=== PATIENT | male | born 1990 | race Caucasian/White ===

== ENCOUNTER 2019-03-31 11:53 | Inpatient (IN) | payer OTHER ==
[2019-03-31 13:28] VITALS: BMI 26.2
--- NOTE | 2019-03-31 13:56 | HP ---
COWS - Scale Resting Pulse: 0= [place] 80 or Below Sweatin=Flushed/Facial Moisture Restless Observation: 0= Sits Still Pupil Size: 1= Pupils >than Normal Bone or Joint Aches: 1= Mild Discomfort Runny Nose/ Eye Tearin= Nasal Congestion GI Upset > 30mins: 1= Stomach Cramp Tremor Observation: 2= Slight Tremor Visible Yawning Observation: 1= 1-2x During Session Anxiety or Irritability: 0= None Goose Flesh Skin: 0=Smooth Skin COWS Score: 9 CIWA Score - Admission Criteria OASAS Guidelines: Admission for Medically Managed Detox: Requires at least one of the followin. CIWA greater than 12 2. Seizures within the past 24 hours 3. Delirium tremens within the past 24 hours 4. Hallucinations within the past 24 hours 5. Acute intervention needed for co occurring medical disorder 6. Acute intervention needed for co occurring psychiatric disorder 7. Severe withdrawal that cannot be handled at a lower level of care (continued vomiting, continued diarrhea, abnormal vital signs) requiring intravenous medication and/or fluids 8. Admitting History and Physical - Admission Chief Complaint: wants opiate detox History of Present Illness: The patient is a 28 yo m w/ no PMH who comes into [facility] for assistance with detox from opiates. The patient endorses injecting 7 bags of heroin daily since he was 18 years old. He last used 2 bags at 6pm yesterday evening. The patient states that he overdoes a total of 8 times in the ppast, with the most recent one being 2 years ago 2/2 to the herion being laced with fentanyl. The patient states that he has a narcan kit at home and his mother knows how to use it. The patient endorses injecting and sniffing $20-30 of cocaine approx 2 times per week for the last 4-5 years. His last use was last sunday. The patient also endorses smoking ~ $20-30 of crack 2 times per week for the past 2 years. His last use was last . The patient endorses smoking 1 blunt of marijuana daily Patient endorses 1 PPD tobacco. He states he drank one beer this morning, but drinks only once every 2 weeks. The patient is interested in completing rehab as well. History Source: Patient Limitations to Obtaining History: No Limitations - Past Medical History Psych: Yes: Addictions - Past Surgical History Past Surgical History: Yes: None - Smoking History Have you smoked in the past 12 months: Yes Aproximately how many cigarettes per day: 30 Admission ROS S - HPI Allergies/Adverse Reactions: Allergies Allergy/AdvReac Type Severity Reaction Status Date / Time No Known Allergies Allergy Verified 03/31/19 13:19 - Ebola screening Have you traveled outside of the country in the last 21 days: No Have you had contact with anyone from an Ebola affected area: No Do you have a fever: No - Review of Systems Respiratory: reports: No Symptoms reported Cardiac: reports: No Symptoms Reported GI: reports: Diarrhea, Abdominal cramping : reports: No Symptoms Reported Musculoskeletal: reports: Back Pain, Joint Pain Neuro: reports: Tremors Psychiatric: reports: Judgement Intact, Mood/Affect Appropiate, Orientated x3 Patient History - Smoking Cessation Smoking history: Current every day smoker Have you smoked in the past 12 months: Yes Aproximately how many cigarettes per day: 30 Initiated information on smoking cessation: Yes 'Breaking Loose' booklet given: 03/31/19 - Substances abused Heroin Substance route: Injection Frequency: Daily Amount used: 7-8 bags Age of first use: 18 Date of last use: 03/30/19 Crack Substance route: Smoking Frequency: 1-2 times per week Amount used: $30 Age of first use: 27 Date of last use: 03/28/19 Marijuana/Hashish Substance route: Smoking Frequency: Daily Amount used: 1 blunt Age of first use: 14 Date of last use: 03/28/19 Cocaine Other (specify): and IV Substance route: Inhalation Frequency: 3-6 times per week Amount used: $20-30 Age of first use: 23 Date of last use: 03/29/19 Admission Physical Exam [facility] - Vital Signs Vital Signs: Vital Signs - 24 hr 03/31/19 13:18 Temperature 98.7 F Pulse Rate 73 Respiratory 18 Rate Blood Pressure 127/76 - Physical General Appearance: Yes: Nourished, Mild Distress HEENTM: Yes: EOMI, ALEXSANDRA, Pharynx Normal, Other (pupils mildly dilated) Respiratory: Yes: Chest Non-Tender, Lungs Clear, Normal Breath Sounds, No Respiratory Distress, No Accessory Muscle Use Neck: Yes: Trachea in good position Cardiology: Yes: Regular Rhythm, Regular Rate, S1, S2. 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 intact, Fully Oriented, Alert, Motor Strength 5/5, Normal Mood/Affect Integumentary: Yes: Normal Color, Dry, Warm - Diagnostic (1) Opioid dependence Current Visit: Yes Status: Acute (2) Cocaine abuse Current Visit: Yes Status: Acute (3) Marijuana smoker Current Visit: Yes Status: Acute (4) Tobacco dependence Current Visit: Yes Status: Acute Cleared for Admission [facility] - Detox or Rehab [facility] Level of Care: Medically Managed Detox Regimen/Protocol: Methadone Breathalyzer - Breathalyzer Breathalyzer: 0.006 Urine Drug Screen - Test Device Lot number: [id number] Expiration date: 12/23/20 - Control Is test valid?: Yes - Results Drug screen NEGATIVE: No Urine drug screen results: THC-Marijuana, MOP-Opiates, BUP-Suboxone Inpatient Rehab Admission - Rehab Decision to Admit Inpatient rehab admission?: No
--- NOTE | 2019-03-31 14:14 | PN ---
Teaching Attending Note Name of Resident: Adam Hemphill ATTENDING PHYSICIAN STATEMENT I saw and evaluated the patient. I reviewed the resident's note and discussed the case with the resident. I agree with the resident's findings and plan as documented. SUBJECTIVE: 28 yo with no PMH, here for heroin detox. h/o OD. Has narcan kit. Occ cocaine, alcohol and THC use OBJECTIVE: Vital Signs - 24 hr 03/31/19 13:18 Temperature 98.7 F Pulse Rate 73 Respiratory 18 Rate Blood Pressure 127/76 ASSESSMENT AND PLAN: OUD- to be admitted for detox, discussed MAT with pt
[2019-03-31] MEDS ORDERED: ACETAMINOPHEN 325 MG TABLET (FP) PO PRN ×2 (14:27)
[2019-03-31] MEDS ORDERED: MENTHOL/PHENOL 1 EACH UD MM PRN (14:27)
[2019-03-31] MEDS ORDERED: MAGNESIUM HYDROX 2400MG/30ML ORAL SUSPENSION 30 ML CUP PO PRN (14:27)
[2019-03-31] MEDS ORDERED: IBUPROFEN 400 MG TABLET (FP) PO PRN (14:27)
[2019-03-31] MEDS ORDERED: BISMUTH SUBSALICYLATE 524 MG/30 ML UD PO PRN (14:27)
[2019-03-31] MEDS ORDERED: MAG HYDROX/AL HYDROX/SIMETH 30 ML UNIT-DOSE CUP PO PRN (14:27)
[2019-03-31] MEDS ORDERED: MAGNESIUM CITRATE 300 ML BOTTLE PO PRN (14:27)
[2019-03-31] MEDS ORDERED: cloNIDine HCL 0.1 MG TABLET PO PRN (14:27)
[2019-03-31] MEDS ORDERED: METHADONE HCL 10 MG TABLET (FOR DETOX USE ONLY) PO ONE (16:15)
[2019-03-31] MEDS: NICOTINE 21 MG/24 HOURS TOPICAL PATCH TD SCH (17:02)
[2019-03-31] MEDS: THIAMINE HCL 100 MG TABLET (FP) PO SCH (21:35)
[2019-03-31] MEDS: clonazePAM 0.5 MG TABLET PO PRN (21:35)
[2019-03-31] MEDS: METHOCARBAMOL 500 MG TABLET PO PRN (21:35)
[2019-03-31] MEDS: MELATONIN 5 MG TABLETS PO PRN (21:36)
[2019-04-01] MEDS: METHOCARBAMOL 500 MG TABLET PO PRN ×2 (06:33→22:00)
[2019-04-01] MEDS ORDERED: METHADONE HCL 10 MG TABLET (FOR DETOX USE ONLY) ONE (08:44)
[2019-04-01] MEDS ORDERED: METHADONE HCL 5 MG TABLET (FOR DETOX USE ONLY) ONE (08:44)
[2019-04-01 09:41] LABS: HEMATOCRIT 39.4 % (35.4-49); HEMOGLOBIN 13.3 GM/dL (11.7-16.9); MCH 29.3 pg (25.7-33.7); MCHC 33.7 g/dl (32.0-35.9); MEAN CELL VOLUME 86.8 fl (80-96); PLATELET COUNT 284 K/MM3 (134-434); RBC 4.54 M/mm3 (4.00-5.60); RDW 13.8 % (11.9-15.9); WHITE BLOOD COUNT 5.5 K/mm3 (4.0-10.0)
[2019-04-01] MEDS ORDERED: METHADONE (DETOX) 20 MG, METHADONE (DETOX) 5 MG PO ONE (10:00)
[2019-04-01] MEDS: PRENATAL VITAMINS W/ FOLIC ACID TABLET (FP) PO SCH (10:01)
[2019-04-01] MEDS: NICOTINE 21 MG/24 HOURS TOPICAL PATCH TD SCH (10:02)
[2019-04-01] MEDS: clonazePAM 0.5 MG TABLET PO PRN ×2 (10:05→22:00)
[2019-04-01] MEDS: hydrOXYzine PAMOATE 25 MG CAPSULE (FP) PO PRN (10:05)
[2019-04-01 10:16] LABS: ALBUMIN 3.8 g/dl (3.4-5.0); BILIRUBIN,TOTAL 0.6 mg/dL (0.2-1); BLOOD UREA NITROGEN 15.8 mg/dL (7-18); CALCIUM 9.2 mg/dL (8.5-10.1); TOT PROT 7.2 g/dl (6.4-8.2)
--- NOTE | 2019-04-01 11:22 | PN ---
BHS COWS - Scale Resting Pulse: 0= [place] 80 or Below Sweatin= Chills/Flushing Restless Observation: 0= Sits Still Pupil Size: 1= Pupils >than Normal Bone or Joint Aches: 1= Mild Discomfort Runny Nose/ Eye Tearin= Nasal Congestion GI Upset > 30mins: 1= Stomach Cramp Tremor Observation of Outstretched Hands: 1= Tremor [place], Not Seen Yawning Observation: 1= 1-2x During Session Anxiety or Irritability: 1=Feels Anxious/Irritable Goose Flesh Skin: 0=Smooth Skin COWS Score: 8 BHS Progress Note (SOAP) Subjective: 28 years old male admitted on 03/31/19 for opiate withdrawal sx management treating with methadone detox regimen feeling ok today ate breakfast in day room with peers encourage to consider medication assisted 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 program 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 Objective: 04/01/19 11:21 Vital Signs Temperature 98.8 F 04/01/19 09:16 Pulse Rate 76 04/01/19 09:16 Respiratory Rate 18 04/01/19 09:16 Blood Pressure 121/61 04/01/19 09:16 O2 Sat by Pulse Oximetry (%) Laboratory Last Values WBC 5.5 K/mm3 (4.0-10.0) 04/01/19 08:00 RBC 4.54 M/mm3 (4.00-5.60) 04/01/19 08:00 Hgb 13.3 GM/dL (11.7-16.9) 04/01/19 08:00 Hct 39.4 % (35.4-49) 04/01/19 08:00 MCV 86.8 fl (80-96) 04/01/19 08:00 MCH 29.3 pg (25.7-33.7) 04/01/19 08:00 MCHC 33.7 g/dl (32.0-35.9) 04/01/19 08:00 RDW 13.8 % (11.9-15.9) 04/01/19 08:00 Plt Count 284 K/MM3 (134-434) 04/01/19 08:00 MPV 8.0 fl (7.5-11.1) 04/01/19 08:00 Sodium 137 mmol/L (136-145) 04/01/19 08:00 Potassium 4.0 mmol/L (3.5-5.1) 04/01/19 08:00 Chloride 101 mmol/L (98-107) 04/01/19 08:00 Carbon Dioxide 32 mmol/L (21-32) 04/01/19 08:00 Anion Gap 4 MMOL/L (8-16) L 04/01/19 08:00 BUN 15.8 mg/dL (7-18) 04/01/19 08:00 Creatinine 1.0 mg/dL (0.55-1.3) 04/01/19 08:00 Est GFR (CKD-EPI)AfAm 117.36 04/01/19 08:00 Est GFR (CKD-EPI)NonAf 101.26 04/01/19 08:00 Random Glucose 135 mg/dL (74-106) H 04/01/19 08:00 Calcium 9.2 mg/dL (8.5-10.1) 04/01/19 08:00 Total Bilirubin 0.6 mg/dL (0.2-1) 04/01/19 08:00 AST 12 U/L (15-37) L 04/01/19 08:00 ALT 23 U/L (13-61) 04/01/19 08:00 Alkaline Phosphatase 58 U/L (45-117) 04/01/19 08:00 Total Protein 7.2 g/dl (6.4-8.2) 04/01/19 08:00 Albumin 3.8 g/dl (3.4-5.0) 04/01/19 08:00 lab noted Assessment: 04/01/19 11:22 opiate withdrawal Plan: methadone regimen
[2019-04-01] MEDS: THIAMINE HCL 100 MG TABLET (FP) PO SCH (22:00)
[2019-04-01] MEDS: MELATONIN 5 MG TABLETS PO PRN (22:00)
[2019-04-02] MEDS: clonazePAM 0.5 MG TABLET PO PRN ×2 (09:50→21:50)
[2019-04-02] MEDS: METHOCARBAMOL 500 MG TABLET PO PRN (09:50)
[2019-04-02] MEDS: NICOTINE 21 MG/24 HOURS TOPICAL PATCH TD SCH (09:50)
[2019-04-02] MEDS: PRENATAL VITAMINS W/ FOLIC ACID TABLET (FP) PO SCH (09:51)
[2019-04-02] MEDS ORDERED: METHADONE HCL 10 MG TABLET (FOR DETOX USE ONLY) PO ONE (10:00)
--- NOTE | 2019-04-02 11:05 | PN ---
BHS COWS - Scale Resting Pulse: 0= [place] 80 or Below Sweatin= Chills/Flushing Restless Observation: 0= Sits Still Pupil Size: 1= Pupils >than Normal Bone or Joint Aches: 1= Mild Discomfort Runny Nose/ Eye Tearin= Nasal Congestion GI Upset > 30mins: 1= Stomach Cramp Tremor Observation of Outstretched Hands: 1= Tremor [place], Not Seen Yawning Observation: 0= None Anxiety or Irritability: 1=Feels Anxious/Irritable Goose Flesh Skin: 0=Smooth Skin COWS Score: 7 BHS Progress Note (SOAP) Subjective: 28 years old male admitted on 03/31/19 for opiate withdrawal sx management treating with methadone detox regimen ate breakfast resting in bed encourage the patient to consider medication assisted treatment program and 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 narcan from pharmacy Objective: 04/02/19 11:06 Vital Signs Temperature 97.6 F 04/02/19 09:25 Pulse Rate 60 04/02/19 09:25 Respiratory Rate 18 04/02/19 09:25 Blood Pressure 113/57 L 04/02/19 09:25 O2 Sat by Pulse Oximetry (%) Laboratory Last Values WBC 5.5 K/mm3 (4.0-10.0) 04/01/19 08:00 RBC 4.54 M/mm3 (4.00-5.60) 04/01/19 08:00 Hgb 13.3 GM/dL (11.7-16.9) 04/01/19 08:00 Hct 39.4 % (35.4-49) 04/01/19 08:00 MCV 86.8 fl (80-96) 04/01/19 08:00 MCH 29.3 pg (25.7-33.7) 04/01/19 08:00 MCHC 33.7 g/dl (32.0-35.9) 04/01/19 08:00 RDW 13.8 % (11.9-15.9) 04/01/19 08:00 Plt Count 284 K/MM3 (134-434) 04/01/19 08:00 MPV 8.0 fl (7.5-11.1) 04/01/19 08:00 Sodium 137 mmol/L (136-145) 04/01/19 08:00 Potassium 4.0 mmol/L (3.5-5.1) 04/01/19 08:00 Chloride 101 mmol/L (98-107) 04/01/19 08:00 Carbon Dioxide 32 mmol/L (21-32) 04/01/19 08:00 Anion Gap 4 MMOL/L (8-16) L 04/01/19 08:00 BUN 15.8 mg/dL (7-18) 04/01/19 08:00 Creatinine 1.0 mg/dL (0.55-1.3) 04/01/19 08:00 Est GFR (CKD-EPI)AfAm 117.36 04/01/19 08:00 Est GFR (CKD-EPI)NonAf 101.26 04/01/19 08:00 Random Glucose 135 mg/dL (74-106) H 04/01/19 08:00 Calcium 9.2 mg/dL (8.5-10.1) 04/01/19 08:00 Total Bilirubin 0.6 mg/dL (0.2-1) 04/01/19 08:00 AST 12 U/L (15-37) L 04/01/19 08:00 ALT 23 U/L (13-61) 04/01/19 08:00 Alkaline Phosphatase 58 U/L (45-117) 04/01/19 08:00 Total Protein 7.2 g/dl (6.4-8.2) 04/01/19 08:00 Albumin 3.8 g/dl (3.4-5.0) 04/01/19 08:00 RPR Titer Nonreactive (NONREACTIVE) 04/01/19 08:00 HIV 1&2 Antibody Screen Negative 04/01/19 08:00 HIV P24 Antigen Negative 04/01/19 08:00 lab noted Assessment: 04/02/19 11:06 opiate withdrawal Plan: methadone regimen
[2019-04-02] MEDS: MELATONIN 5 MG TABLETS PO PRN (21:49)
[2019-04-02] MEDS: THIAMINE HCL 100 MG TABLET (FP) PO SCH (21:50)
[2019-04-03] MEDS ORDERED: METHADONE (DETOX) 10 MG, METHADONE (DETOX) 5 MG PO ONE (10:00)
[2019-04-03] MEDS ORDERED: METHADONE HCL 5 MG TABLET (FOR DETOX USE ONLY) ONE (10:03)
[2019-04-03] MEDS ORDERED: METHADONE HCL 10 MG TABLET (FOR DETOX USE ONLY) ONE (10:03)
[2019-04-03] MEDS: clonazePAM 0.5 MG TABLET PO PRN ×2 (10:04→21:56)
[2019-04-03] MEDS: PRENATAL VITAMINS W/ FOLIC ACID TABLET (FP) PO SCH (10:05)
[2019-04-03] MEDS: NICOTINE 21 MG/24 HOURS TOPICAL PATCH TD SCH (10:05)
--- NOTE | 2019-04-03 11:22 | PN ---
BHS COWS - Scale Resting Pulse: 0= [place] 80 or Below Sweatin= No chills or Flushing Restless Observation: 0= Sits Still Pupil Size: 1= Pupils >than Normal Bone or Joint Aches: 1= Mild Discomfort Runny Nose/ Eye Tearin= None GI Upset > 30mins: 0= None Tremor Observation of Outstretched Hands: 1= Tremor [place], Not Seen Yawning Observation: 0= None Anxiety or Irritability: 1=Feels Anxious/Irritable Goose Flesh Skin: 0=Smooth Skin COWS Score: 4 BHS Progress Note (SOAP) Subjective: 28 years old male admitted on 03/31/19 for opiate withdrawal sx management treating with methadone detox regimen doing ok today discuss aftercare with staff patient determines to maintain opioid free lifestyle Objective: 04/03/19 11:21 Vital Signs Temperature 97.0 F L 04/03/19 09:34 Pulse Rate 59 L 04/03/19 09:34 Respiratory Rate 18 04/03/19 09:34 Blood Pressure 133/73 04/03/19 09:34 O2 Sat by Pulse Oximetry (%) Laboratory Last Values WBC 5.5 K/mm3 (4.0-10.0) 04/01/19 08:00 RBC 4.54 M/mm3 (4.00-5.60) 04/01/19 08:00 Hgb 13.3 GM/dL (11.7-16.9) 04/01/19 08:00 Hct 39.4 % (35.4-49) 04/01/19 08:00 MCV 86.8 fl (80-96) 04/01/19 08:00 MCH 29.3 pg (25.7-33.7) 04/01/19 08:00 MCHC 33.7 g/dl (32.0-35.9) 04/01/19 08:00 RDW 13.8 % (11.9-15.9) 04/01/19 08:00 Plt Count 284 K/MM3 (134-434) 04/01/19 08:00 MPV 8.0 fl (7.5-11.1) 04/01/19 08:00 Sodium 137 mmol/L (136-145) 04/01/19 08:00 Potassium 4.0 mmol/L (3.5-5.1) 04/01/19 08:00 Chloride 101 mmol/L (98-107) 04/01/19 08:00 Carbon Dioxide 32 mmol/L (21-32) 04/01/19 08:00 Anion Gap 4 MMOL/L (8-16) L 04/01/19 08:00 BUN 15.8 mg/dL (7-18) 04/01/19 08:00 Creatinine 1.0 mg/dL (0.55-1.3) 04/01/19 08:00 Est GFR (CKD-EPI)AfAm 117.36 04/01/19 08:00 Est GFR (CKD-EPI)NonAf 101.26 04/01/19 08:00 Random Glucose 135 mg/dL (74-106) H 04/01/19 08:00 Calcium 9.2 mg/dL (8.5-10.1) 04/01/19 08:00 Total Bilirubin 0.6 mg/dL (0.2-1) 04/01/19 08:00 AST 12 U/L (15-37) L 04/01/19 08:00 ALT 23 U/L (13-61) 04/01/19 08:00 Alkaline Phosphatase 58 U/L (45-117) 04/01/19 08:00 Total Protein 7.2 g/dl (6.4-8.2) 04/01/19 08:00 Albumin 3.8 g/dl (3.4-5.0) 04/01/19 08:00 RPR Titer Nonreactive (NONREACTIVE) 04/01/19 08:00 HIV 1&2 Antibody Screen Negative 04/01/19 08:00 HIV P24 Antigen Negative 04/01/19 08:00 lab noted Assessment: 04/03/19 11:21 opiate withdrawal Plan: methadone regimen
[2019-04-03] MEDS: hydrOXYzine PAMOATE 25 MG CAPSULE (FP) PO PRN (15:53)
[2019-04-03] MEDS: METHOCARBAMOL 500 MG TABLET PO PRN (15:53)
[2019-04-03] MEDS: THIAMINE HCL 100 MG TABLET (FP) PO SCH (21:56)
[2019-04-03] MEDS: MELATONIN 5 MG TABLETS PO PRN (21:59)
[2019-04-04] MEDS: NICOTINE 21 MG/24 HOURS TOPICAL PATCH TD SCH (09:38)
[2019-04-04] MEDS: PRENATAL VITAMINS W/ FOLIC ACID TABLET (FP) PO SCH (09:38)
[2019-04-04] MEDS: METHOCARBAMOL 500 MG TABLET PO PRN ×2 (09:39→21:22)
[2019-04-04] MEDS: clonazePAM 0.5 MG TABLET PO PRN (09:44)
[2019-04-04] MEDS ORDERED: METHADONE HCL 10 MG TABLET (FOR DETOX USE ONLY) PO ONE (10:00)
--- NOTE | 2019-04-04 11:38 | PN ---
BHS COWS - Scale Resting Pulse: 1= [place] 81-100 Sweatin= No chills or Flushing Restless Observation: 1= Difficult to Sit Still Pupil Size: 0= Normal to Room Light Bone or Joint Aches: 1= Mild Discomfort Runny Nose/ Eye Tearin= None GI Upset > 30mins: 1= Stomach Cramp Tremor Observation of Outstretched Hands: 1= Tremor [place], Not Seen Yawning Observation: 0= None Anxiety or Irritability: 1=Feels Anxious/Irritable Goose Flesh Skin: 0=Smooth Skin COWS Score: 6 BHS Progress Note (SOAP) Subjective: 28 years old male admitted on 03/31/19 for opiate withdrawal sx management treating with methadone detox regimen doing ok today, anticipate discharge tomorrow, d/w MAT- pt agreeable for methadone MAT O: Vital Signs - 24 hr 04/03/19 04/03/19 04/03/19 13:03 18:00 22:50 Temperature 98.7 F 98.3 F 97 F L Pulse Rate 65 68 70 Respiratory 18 18 18 Rate Blood Pressure 124/65 107/62 120/61 04/04/19 04/04/19 04/04/19 00:30 03:30 06:04 Temperature 97.6 F Pulse Rate 49 L Respiratory 18 16 18 Rate Blood Pressure 102/62 04/04/19 09:19 Temperature 97.2 F L Pulse Rate 68 Respiratory 18 Rate Blood Pressure 100/58 L Laboratory Tests 04/01/19 04/01/19 04/01/19 08:00 08:00 08:00 WBC 5.5 RBC 4.54 Hgb 13.3 Hct 39.4 MCV 86.8 MCH 29.3 MCHC 33.7 RDW 13.8 Plt Count 284 MPV 8.0 Sodium 137 Potassium 4.0 Chloride 101 Carbon Dioxide 32 Anion Gap 4 L BUN 15.8 Creatinine 1.0 Est GFR (CKD-EPI)AfAm 117.36 Est GFR (CKD-EPI)NonAf 101.26 Random Glucose 135 H Calcium 9.2 Total Bilirubin 0.6 AST 12 L ALT 23 Alkaline Phosphatase 58 Total Protein 7.2 Albumin 3.8 RPR Titer Nonreactive HIV 1&2 Antibody Screen HIV P24 Antigen 04/01/19 08:00 WBC RBC Hgb Hct MCV MCH MCHC RDW Plt Count MPV Sodium Potassium Chloride Carbon Dioxide Anion Gap BUN Creatinine Est GFR (CKD-EPI)AfAm Est GFR (CKD-EPI)NonAf Random Glucose Calcium Total Bilirubin AST ALT Alkaline Phosphatase Total Protein Albumin RPR Titer HIV 1&2 Antibody Screen Negative HIV P24 Antigen Negative a/p: OUD- continue methadone detox protocol, d/c tomorrow, pt to consider skilled nursing MAT methadone- will d/w counselor
[2019-04-04] MEDS: hydrOXYzine PAMOATE 25 MG CAPSULE (FP) PO PRN ×2 (15:44→21:22)
[2019-04-04] MEDS: THIAMINE HCL 100 MG TABLET (FP) PO SCH (21:22)
[2019-04-04] MEDS: MELATONIN 5 MG TABLETS PO PRN (21:22)
[2019-04-05] MEDS ORDERED: METHADONE HCL 5 MG TABLET (FOR DETOX USE ONLY) PO ONE (06:00)
[2019-04-05 06:45] VITALS: BP 107/63; PULSE 50; TEMP 97.7
--- NOTE | 2019-04-05 12:17 | DS ---
[facility] Detox Discharge Summary Admission Date: 03/31/19 Discharge Date: 04/05/19 - History Present History: Cannabis Dependence, Cocaine Dependence, Opioid Dependence Additional Comments: Pt is medically cleared and discharge today. Pt completed the detox protocol. Pt is encouraged to follow-up with an outpatient CD program and also to follow- up with his pmd. Pt verabalized understanding. Pt is alert and oriented x3 and in no respiratory distress. Pertinent Past History: h/o cannabis, heroin, and cocaine use disorder. - Physical Exam Results Vital Signs: Vital Signs Temperature 97.7 F 04/05/19 06:44 Pulse Rate 50 L 04/05/19 06:44 Respiratory Rate 18 04/05/19 06:44 Blood Pressure 107/63 04/05/19 06:44 O2 Sat by Pulse Oximetry (%) Vital Signs 04/05/19 06:44 Temperature 97.7 F Pulse Rate 50 L Respiratory 18 Rate Blood Pressure 107/63 Laboratory Last Values WBC 5.5 K/mm3 (4.0-10.0) 04/01/19 08:00 RBC 4.54 M/mm3 (4.00-5.60) 04/01/19 08:00 Hgb 13.3 GM/dL (11.7-16.9) 04/01/19 08:00 Hct 39.4 % (35.4-49) 04/01/19 08:00 MCV 86.8 fl (80-96) 04/01/19 08:00 MCH 29.3 pg (25.7-33.7) 04/01/19 08:00 MCHC 33.7 g/dl (32.0-35.9) 04/01/19 08:00 RDW 13.8 % (11.9-15.9) 04/01/19 08:00 Plt Count 284 K/MM3 (134-434) 04/01/19 08:00 MPV 8.0 fl (7.5-11.1) 04/01/19 08:00 Sodium 137 mmol/L (136-145) 04/01/19 08:00 Potassium 4.0 mmol/L (3.5-5.1) 04/01/19 08:00 Chloride 101 mmol/L (98-107) 04/01/19 08:00 Carbon Dioxide 32 mmol/L (21-32) 04/01/19 08:00 Anion Gap 4 MMOL/L (8-16) L 04/01/19 08:00 BUN 15.8 mg/dL (7-18) 04/01/19 08:00 Creatinine 1.0 mg/dL (0.55-1.3) 04/01/19 08:00 Est GFR (CKD-EPI)AfAm 117.36 04/01/19 08:00 Est GFR (CKD-EPI)NonAf 101.26 04/01/19 08:00 POC Glucometer 96 UNITS (80-120) 04/04/19 21:25 Random Glucose 135 mg/dL (74-106) H 04/01/19 08:00 Calcium 9.2 mg/dL (8.5-10.1) 04/01/19 08:00 Total Bilirubin 0.6 mg/dL (0.2-1) 04/01/19 08:00 AST 12 U/L (15-37) L 04/01/19 08:00 ALT 23 U/L (13-61) 04/01/19 08:00 Alkaline Phosphatase 58 U/L (45-117) 04/01/19 08:00 Total Protein 7.2 g/dl (6.4-8.2) 04/01/19 08:00 Albumin 3.8 g/dl (3.4-5.0) 04/01/19 08:00 RPR Titer Nonreactive (NONREACTIVE) 04/01/19 08:00 HIV 1&2 Antibody Screen Negative 04/01/19 08:00 HIV P24 Antigen Negative 04/01/19 08:00 Labs noted. Pertinent Admission Physical Exam Findings: withdrawal symptoms - Treatment Hospital Course: Detox Protocol Followed, Detoxed Safely, Responded well, Discharged Condition Good - Medication Discharge Medications: Ambulatory Orders Naloxone HCl [Narcan] 4 mg NS ASDIR PRN #1 spray 04/01/19 - Diagnosis (1) Cocaine abuse Status: Acute (2) Marijuana smoker Status: Acute (3) Opioid dependence Status: Acute (4) Tobacco dependence Status: Acute - AMA Did Patient Leave Against Medical Advice: No
== END 2019-04-05 08:48 | disposition home or self-care (01) | DRG 773 ==
LOC: YASAS 11:53 → Y3N 15:51
PROVIDERS: ADMIT Allergy & Immunology; ATTEND Allergy & Immunology
PROC: HZ2ZZZZ Detoxification Services for Substance Abuse Treatment (ICD-10-PCS; principal; 2019-03-31)
DX: F11.23 Opioid dependence with withdrawal (principal); F14.20 Cocaine dependence, uncomplicated; F12.20 Cannabis dependence, uncomplicated; F17.210 Nicotine dependence, cigarettes, uncomplicated
CPT/HCPCS: 36415; 80053; 82962; 85027; 86593; 87389

== ENCOUNTER 2020-03-27 09:44 | Inpatient (IN) | payer OTHER ==
[2020-03-27 10:08] VITALS: BMI 29.5
[2020-03-27] MEDS ORDERED: ONDANSETRON *ODT* 4 MG TABLET SL PRN (10:31)
[2020-03-27] MEDS ORDERED: MAGNESIUM CITRATE 300 ML BOTTLE PO PRN (10:31)
[2020-03-27] MEDS ORDERED: MAGNESIUM HYDROX 2400MG/30ML ORAL SUSPENSION 30 ML CUP PO PRN (10:31)
[2020-03-27] MEDS ORDERED: METHADONE HCL 10 MG TABLET (FOR DETOX USE ONLY) PO ONE (10:31)
[2020-03-27] MEDS ORDERED: ACETAMINOPHEN 325 MG TABLET (FP) PO PRN ×2 (10:31)
[2020-03-27] MEDS ORDERED: NICOTINE POLACRILEX 2 MG GUM BUC PRN (10:31)
[2020-03-27] MEDS ORDERED: MAG HYDROX/AL HYDROX/SIMETH 30 ML UNIT-DOSE CUP PO PRN (10:31)
[2020-03-27] MEDS ORDERED: MENTHOL/PHENOL 1 EACH UD MM PRN (10:31)
[2020-03-27] MEDS ORDERED: BISMUTH SUBSALICYLATE 524 MG/30 ML UD PO PRN (10:31)
[2020-03-27] MEDS ORDERED: cloNIDine HCL 0.1 MG TABLET PO PRN (10:31)
[2020-03-27] MEDS: NICOTINE 21 MG/24 HOURS TOPICAL PATCH TD SCH (11:09)
[2020-03-27] MEDS: diazePAM 5 MG TABLET PO PRN ×2 (11:09→16:44)
[2020-03-27] MEDS: hydrOXYzine PAMOATE 25 MG CAPSULE (FP) PO SCH ×3 (13:53→22:23)
[2020-03-27] MEDS: THIAMINE HCL 100 MG TABLET (FP) PO SCH (22:22)
[2020-03-27] MEDS: MELATONIN 5 MG TABLETS PO SCH (22:22)
[2020-03-28] MEDS: hydrOXYzine PAMOATE 25 MG CAPSULE (FP) PO SCH ×5 (06:40→22:38)
[2020-03-28] MEDS ORDERED: METHADONE HCL 10 MG TABLET (FOR DETOX USE ONLY) ONE (09:40)
[2020-03-28] MEDS ORDERED: METHADONE HCL 5 MG TABLET (FOR DETOX USE ONLY) ONE (09:40)
[2020-03-28] MEDS ORDERED: METHADONE (DETOX) 20 MG, METHADONE (DETOX) 5 MG PO ONE (10:00)
[2020-03-28] MEDS: NICOTINE 21 MG/24 HOURS TOPICAL PATCH TD SCH (10:04)
[2020-03-28] MEDS: PRENATAL VITAMINS W/ FOLIC ACID TABLET (FP) PO SCH (10:05)
[2020-03-28] MEDS: METHOCARBAMOL 500 MG TABLET PO PRN ×2 (10:05→19:47)
[2020-03-28] MEDS: diazePAM 5 MG TABLET PO PRN ×3 (10:06→19:47)
[2020-03-28 11:07] LABS: HEMATOCRIT 38.4 % (35.4-49); HEMOGLOBIN 13.1 GM/dL (11.7-16.9); MCH 30.2 pg (25.7-33.7); MCHC 34.1 g/dl (32.0-35.9); MEAN CELL VOLUME 88.6 fl (80-96); MEAN PLT VOLUME 7.8 fl (7.5-11.1); PLATELET COUNT 299 K/MM3 (134-434); RBC 4.34 M/mm3 (4.00-5.60); RDW 12.9 % (11.9-15.9); WHITE BLOOD COUNT 5.1 K/mm3 (4.0-10.0)
[2020-03-28 11:22] LABS: CALCIUM 9.2 mg/dL (8.5-10.1)
[2020-03-28 11:23] LABS: ALBUMIN 3.9 g/dl (3.4-5.0); BLOOD UREA NITROGEN 10.3 mg/dL (7-18)
[2020-03-28 11:27] LABS: CREATININE 0.7 mg/dL (0.55-1.3)
[2020-03-28 11:28] LABS: TOT PROT 7.3 g/dl (6.4-8.2)
[2020-03-28 11:29] LABS: BILIRUBIN,TOTAL 1.1 mg/dL (0.2-1)
[2020-03-28] MEDS: MELATONIN 5 MG TABLETS PO SCH (22:38)
[2020-03-28] MEDS: THIAMINE HCL 100 MG TABLET (FP) PO SCH (22:38)
[2020-03-29] MEDS: hydrOXYzine PAMOATE 25 MG CAPSULE (FP) PO SCH ×6 (07:03→22:28)
[2020-03-29] MEDS ORDERED: METHADONE HCL 10 MG TABLET (FOR DETOX USE ONLY) PO ONE (10:00)
[2020-03-29] MEDS: diazePAM 5 MG TABLET PO PRN ×3 (10:10→19:27)
[2020-03-29] MEDS: PRENATAL VITAMINS W/ FOLIC ACID TABLET (FP) PO SCH (10:10)
[2020-03-29] MEDS: METHOCARBAMOL 500 MG TABLET PO PRN ×2 (10:10→17:34)
[2020-03-29] MEDS: NICOTINE 21 MG/24 HOURS TOPICAL PATCH TD SCH (10:11)
[2020-03-29] MEDS: THIAMINE HCL 100 MG TABLET (FP) PO SCH (22:28)
[2020-03-29] MEDS: MELATONIN 5 MG TABLETS PO SCH (22:28)
[2020-03-29] MEDS: IBUPROFEN 400 MG TABLET (FP) PO PRN (22:29)
[2020-03-30] MEDS: hydrOXYzine PAMOATE 25 MG CAPSULE (FP) PO SCH ×2 (06:57→09:48)
[2020-03-30] MEDS ORDERED: METHADONE HCL 10 MG TABLET (FOR DETOX USE ONLY) ONE (08:42)
[2020-03-30] MEDS ORDERED: METHADONE HCL 5 MG TABLET (FOR DETOX USE ONLY) ONE (08:42)
[2020-03-30] MEDS: PRENATAL VITAMINS W/ FOLIC ACID TABLET (FP) PO SCH (09:46)
[2020-03-30] MEDS: METHOCARBAMOL 500 MG TABLET PO PRN (09:46)
[2020-03-30] MEDS: diazePAM 5 MG TABLET PO PRN (09:47)
[2020-03-30] MEDS: NICOTINE 21 MG/24 HOURS TOPICAL PATCH TD SCH (09:49)
[2020-03-30] MEDS ORDERED: hydrOXYzine PAMOATE 25 MG CAPSULE (FP) PO PRN (09:49)
[2020-03-30] MEDS ORDERED: METHADONE (DETOX) 10 MG, METHADONE (DETOX) 5 MG PO ONE (10:00)
[2020-03-30 13:00] VITALS: BP 109/61; PULSE 80; TEMP 97.8
[2020-03-30] MEDS: IBUPROFEN 400 MG TABLET (FP) PO PRN (14:29)
[2020-03-31] MEDS ORDERED: METHADONE HCL 10 MG TABLET (FOR DETOX USE ONLY) PO ONE (10:00)
[2020-04-01] MEDS ORDERED: METHADONE HCL 5 MG TABLET (FOR DETOX USE ONLY) PO ONE (06:00)
== END 2020-03-30 16:00 | disposition left against medical advice (07) | DRG 770 ==
LOC: YASAS 09:44 → Y3N 10:37
PROVIDERS: ADMIT Allergy & Immunology; ATTEND Allergy & Immunology
PROC: HZ2ZZZZ Detoxification Services for Substance Abuse Treatment (ICD-10-PCS; principal; 2020-03-27)
DX: F11.23 Opioid dependence with withdrawal (principal); F14.20 Cocaine dependence, uncomplicated; F12.20 Cannabis dependence, uncomplicated; F17.210 Nicotine dependence, cigarettes, uncomplicated
CPT/HCPCS: 36415; 80053; 85027; 86780; C9803; U0003

== ENCOUNTER 2020-08-21 11:00 | Inpatient (IN) | payer OTHER ==
[2020-08-21] MEDS ORDERED: NICOTINE POLACRILEX 2 MG GUM BUC PRN (11:42)
[2020-08-21] MEDS ORDERED: MAGNESIUM HYDROX 2400MG/30ML ORAL SUSPENSION 30 ML CUP PO PRN (11:42)
[2020-08-21] MEDS ORDERED: MAGNESIUM CITRATE 300 ML BOTTLE PO PRN (11:42)
[2020-08-21] MEDS ORDERED: NALOXONE HCL 0.4 MG/ML VIAL IM PRN (11:42)
[2020-08-21] MEDS ORDERED: MAG HYDROX/AL HYDROX/SIMETH 30 ML UNIT-DOSE CUP PO PRN (11:42)
[2020-08-21] MEDS ORDERED: METHADONE HCL 10 MG TABLET (FOR DETOX USE ONLY) PO ONE (11:42)
[2020-08-21] MEDS ORDERED: ACETAMINOPHEN 325 MG TABLET (FP) PO PRN ×2 (11:42)
[2020-08-21] MEDS ORDERED: MENTHOL/PHENOL 1 EACH UD MM PRN (11:42)
[2020-08-21] MEDS ORDERED: IBUPROFEN 400 MG TABLET (FP) PO PRN (11:42)
[2020-08-21 12:26] VITALS: BMI 30.2
[2020-08-21] MEDS: NICOTINE 7 MG/24 HOURS TOPICAL PATCH TD SCH (13:22)
[2020-08-21] MEDS: THIAMINE HCL 100 MG TABLET (FP) PO SCH (22:17)
[2020-08-21] MEDS: MELATONIN 5 MG TABLETS PO SCH (22:17)
[2020-08-22] MEDS ORDERED: METHADONE HCL 10 MG TABLET (FOR DETOX USE ONLY) ONE (08:45)
[2020-08-22] MEDS ORDERED: METHADONE HCL 5 MG TABLET (FOR DETOX USE ONLY) ONE (08:46)
[2020-08-22] MEDS ORDERED: METHADONE (DETOX) 20 MG, METHADONE (DETOX) 5 MG PO ONE (10:00)
[2020-08-22] MEDS: NICOTINE 7 MG/24 HOURS TOPICAL PATCH TD SCH (10:16)
[2020-08-22] MEDS: PRENATAL VITAMINS W/ FOLIC ACID TABLET (FP) PO SCH (10:16)
[2020-08-22] MEDS: cloNIDine HCL 0.1 MG TABLET PO PRN (10:21)
[2020-08-22 11:08] LABS: HEMATOCRIT 38.6 % (35.4-49); HEMOGLOBIN 13.4 GM/dL (11.7-16.9); MCH 30.8 pg (25.7-33.7); MCHC 34.8 g/dl (32.0-35.9); MEAN CELL VOLUME 88.5 fl (80-96); MEAN PLT VOLUME 7.8 fl (7.5-11.1); PLATELET COUNT 308 K/MM3 (134-434); RBC 4.36 M/mm3 (4.00-5.60); RDW 14.1 % (11.9-15.9); WHITE BLOOD COUNT 5.4 K/mm3 (4.0-10.0)
[2020-08-22 11:10] LABS: BLOOD UREA NITROGEN 15.1 mg/dL (7-18)
[2020-08-22 11:11] LABS: ALBUMIN 4.1 g/dl (3.4-5.0)
[2020-08-22 11:14] LABS: CREATININE 0.8 mg/dL (0.55-1.3)
[2020-08-22 11:15] LABS: TOT PROT 7.7 g/dl (6.4-8.2)
[2020-08-22 11:21] LABS: BILIRUBIN,TOTAL 0.6 mg/dL (0.2-1); CALCIUM 9.2 mg/dL (8.5-10.1)
[2020-08-22] MEDS: METHOCARBAMOL 500 MG TABLET PO PRN (22:25)
[2020-08-22] MEDS: THIAMINE HCL 100 MG TABLET (FP) PO SCH (22:26)
[2020-08-22] MEDS: MELATONIN 5 MG TABLETS PO SCH (22:26)
[2020-08-23] MEDS ORDERED: ONDANSETRON *ODT* 4 MG TABLET SL ONE (08:36)
[2020-08-23] MEDS ORDERED: METHADONE HCL 10 MG TABLET (FOR DETOX USE ONLY) PO ONE (10:00)
[2020-08-23] MEDS: PRENATAL VITAMINS W/ FOLIC ACID TABLET (FP) PO SCH (10:34)
[2020-08-23] MEDS: cloNIDine HCL 0.1 MG TABLET PO PRN (10:34)
[2020-08-23] MEDS: NICOTINE 7 MG/24 HOURS TOPICAL PATCH TD SCH (10:34)
[2020-08-23] MEDS: BISMUTH SUBSALICYLATE 524 MG/30 ML PO PRN (13:07)
[2020-08-23] MEDS: diazePAM 5 MG TABLET PO PRN ×2 (13:07→22:15)
[2020-08-23] MEDS: MELATONIN 5 MG TABLETS PO SCH (22:18)
[2020-08-23] MEDS: THIAMINE HCL 100 MG TABLET (FP) PO SCH (22:18)
[2020-08-24] MEDS ORDERED: METHADONE HCL 10 MG TABLET (FOR DETOX USE ONLY) ONE (09:05)
[2020-08-24] MEDS ORDERED: METHADONE HCL 5 MG TABLET (FOR DETOX USE ONLY) ONE (09:06)
[2020-08-24] MEDS: METHOCARBAMOL 500 MG TABLET PO PRN (09:32)
[2020-08-24] MEDS: PRENATAL VITAMINS W/ FOLIC ACID TABLET (FP) PO SCH (09:32)
[2020-08-24] MEDS: diazePAM 5 MG TABLET PO PRN ×4 (09:32→22:24)
[2020-08-24] MEDS: NICOTINE 7 MG/24 HOURS TOPICAL PATCH TD SCH (09:32)
[2020-08-24] MEDS ORDERED: METHADONE (DETOX) 10 MG, METHADONE (DETOX) 5 MG PO ONE (10:00)
[2020-08-24] MEDS: THIAMINE HCL 100 MG TABLET (FP) PO SCH (22:24)
[2020-08-24] MEDS: MELATONIN 5 MG TABLETS PO SCH (22:24)
[2020-08-25 06:09] LABS: SARS-CoV-2 NAA Not Detected (Not Detected)
[2020-08-25] MEDS ORDERED: METHADONE HCL 10 MG TABLET (FOR DETOX USE ONLY) PO ONE (10:00)
[2020-08-25] MEDS: PRENATAL VITAMINS W/ FOLIC ACID TABLET (FP) PO SCH (10:12)
[2020-08-25] MEDS: diazePAM 5 MG TABLET PO PRN ×3 (10:13→22:04)
[2020-08-25] MEDS: NICOTINE 7 MG/24 HOURS TOPICAL PATCH TD SCH (10:13)
[2020-08-25] MEDS: THIAMINE HCL 100 MG TABLET (FP) PO SCH (22:04)
[2020-08-25] MEDS: MELATONIN 5 MG TABLETS PO SCH (22:04)
[2020-08-26] MEDS ORDERED: METHADONE HCL 5 MG TABLET (FOR DETOX USE ONLY) PO ONE (06:00)
[2020-08-26] MEDS: BISMUTH SUBSALICYLATE 524 MG/30 ML PO PRN ×2 (06:17→08:21)
[2020-08-26 08:57] VITALS: BP 121/70; PULSE 80; TEMP 97.1
== END 2020-08-26 08:45 | disposition home or self-care (01) | DRG 773 ==
LOC: YASAS 11:00 → Y3N 12:28
PROVIDERS: ADMIT Allergy & Immunology; ATTEND Allergy & Immunology
PROC: HZ2ZZZZ Detoxification Services for Substance Abuse Treatment (ICD-10-PCS; principal; 2020-08-21)
DX: F11.23 Opioid dependence with withdrawal (principal); F17.210 Nicotine dependence, cigarettes, uncomplicated
CPT/HCPCS: 36415; 80053; 85027; 86780; 93005; 93010; C9803; J0735; Q0162; U0003; U0005

== ENCOUNTER 2021-06-27 09:54 | Inpatient (IN) | payer OTHER ==
[2021-06-27] MEDS ORDERED: MENTHOL/PHENOL 1 EACH UD MM PRN (10:44)
[2021-06-27] MEDS ORDERED: DICYCLOMINE HCL 10 MG CAPSULE PO PRN (10:44)
[2021-06-27] MEDS ORDERED: LOPERAMIDE HCL 2 MG CAPSULE PO PRN (10:44)
[2021-06-27] MEDS ORDERED: ONDANSETRON *ODT* 4 MG TABLET SL PRN (10:44)
[2021-06-27] MEDS ORDERED: MAGNESIUM HYDROX 2400MG/30ML ORAL SUSPENSION 30 ML CUP PO PRN (10:44)
[2021-06-27] MEDS ORDERED: BISMUTH SUBSALICYLATE 524 MG/30 ML PO PRN (10:44)
[2021-06-27] MEDS ORDERED: MAG HYDROX/AL HYDROX/SIMETH 30 ML UNIT-DOSE CUP PO PRN (10:44)
[2021-06-27] MEDS ORDERED: MAGNESIUM CITRATE 300 ML BOTTLE PO PRN (10:44)
[2021-06-27] MEDS ORDERED: ACETAMINOPHEN 325 MG TABLET (FP) PO PRN ×2 (10:44)
[2021-06-27 10:49] VITALS: BMI 31.3
[2021-06-27] MEDS ORDERED: methaDONE HCL 10 MG TABLET (FOR DETOX USE ONLY) PO ONE (11:15)
[2021-06-27] MEDS: PRENATAL VITAMINS W/ FOLIC ACID TABLET (FP) PO SCH (12:18)
[2021-06-27] MEDS: METHOCARBAMOL 500 MG TABLET PO PRN ×2 (12:19→22:18)
[2021-06-27] MEDS: NICOTINE 10 MG CARTRIDGE (INHALER) IH PRN ×3 (12:21→19:58)
[2021-06-27] MEDS: hydrOXYzine PAMOATE 25 MG CAPSULE (FP) PO SCH ×3 (14:13→22:18)
[2021-06-27 15:11] LABS: HEMATOCRIT 40.2 % (35.4-49); HEMOGLOBIN 13.4 GM/dL (11.7-16.9); MCH 29.8 pg (25.7-33.7); MCHC 33.4 g/dl (32.0-35.9); MEAN CELL VOLUME 89.2 fl (80-96); MEAN PLT VOLUME 7.5 fl (7.5-11.1); PLATELET COUNT 269 10^3/uL (134-434); RDW 14.4 % (11.9-15.9); WHITE BLOOD COUNT 9.1 K/mm3 (4.0-10.0)
[2021-06-27 15:15] LABS: CALCIUM 9.3 mg/dL (8.5-10.1)
[2021-06-27 15:16] LABS: ALBUMIN 4.1 g/dl (3.4-5.0); BLOOD UREA NITROGEN 18.3 mg/dL (7-18)
[2021-06-27 15:20] LABS: BILIRUBIN,TOTAL 0.6 mg/dL (0.2-1); TOT PROT 7.8 g/dl (6.4-8.2)
[2021-06-27] MEDS: THIAMINE HCL 100 MG TABLET (FP) PO SCH (22:18)
[2021-06-27] MEDS: MELATONIN 5 MG TABLETS PO SCH (22:18)
[2021-06-27] MEDS: cloNIDine HCL 0.1 MG TABLET PO PRN (22:18)
[2021-06-28] MEDS: hydrOXYzine PAMOATE 25 MG CAPSULE (FP) PO SCH ×5 (05:46→22:08)
[2021-06-28] MEDS: NICOTINE 10 MG CARTRIDGE (INHALER) IH PRN ×5 (05:46→22:09)
[2021-06-28] MEDS ORDERED: methaDONE HCL 10 MG TABLET (FOR DETOX USE ONLY) ONE (09:35)
[2021-06-28] MEDS ORDERED: NICOTINE 14 MG/24 HOURS TOPICAL PATCH TD SCH (10:00)
[2021-06-28] MEDS: IBUPROFEN 400 MG TABLET (FP) PO PRN (10:37)
[2021-06-28] MEDS: PRENATAL VITAMINS W/ FOLIC ACID TABLET (FP) PO SCH (10:37)
[2021-06-28] MEDS: METHOCARBAMOL 500 MG TABLET PO PRN ×2 (10:37→22:08)
[2021-06-28] MEDS: MELATONIN 5 MG TABLETS PO SCH (22:08)
[2021-06-28] MEDS: THIAMINE HCL 100 MG TABLET (FP) PO SCH (22:09)
[2021-06-29] MEDS: IBUPROFEN 400 MG TABLET (FP) PO PRN (01:07)
[2021-06-29] MEDS: NICOTINE 10 MG CARTRIDGE (INHALER) IH PRN ×5 (02:31→20:01)
[2021-06-29] MEDS: METHOCARBAMOL 500 MG TABLET PO PRN ×3 (03:39→18:06)
[2021-06-29] MEDS: hydrOXYzine PAMOATE 25 MG CAPSULE (FP) PO SCH ×5 (06:07→22:11)
[2021-06-29] MEDS: cloNIDine HCL 0.1 MG TABLET PO PRN ×3 (07:53→22:11)
[2021-06-29] MEDS: PRENATAL VITAMINS W/ FOLIC ACID TABLET (FP) PO SCH (09:54)
[2021-06-29] MEDS ORDERED: methaDONE HCL 10 MG TABLET (FOR DETOX USE ONLY) PO ONE (10:00)
[2021-06-29] MEDS: NICOTINE 21 MG/24 HOURS TOPICAL PATCH TD SCH (10:42)
[2021-06-29] MEDS ORDERED: NICOTINE 21 MG/24 HOURS TOPICAL PATCH TD SCH (14:15)
[2021-06-29] MEDS ORDERED: NICOTINE 21 MG/24 HOURS TOPICAL PATCH TD ONE (14:15)
[2021-06-29 16:08] LABS: SARS-CoV-2 NAA Not Detected (Not Detected)
[2021-06-29] MEDS: THIAMINE HCL 100 MG TABLET (FP) PO SCH (22:11)
[2021-06-29] MEDS: MELATONIN 5 MG TABLETS PO SCH (22:11)
[2021-06-30] MEDS: METHOCARBAMOL 500 MG TABLET PO PRN ×4 (02:02→22:05)
[2021-06-30] MEDS: NICOTINE 10 MG CARTRIDGE (INHALER) IH PRN ×5 (02:02→22:07)
[2021-06-30] MEDS: hydrOXYzine PAMOATE 25 MG CAPSULE (FP) PO SCH ×5 (06:14→22:05)
[2021-06-30] MEDS ORDERED: methaDONE HCL 10 MG TABLET (FOR DETOX USE ONLY) ONE (09:31)
[2021-06-30] MEDS: NICOTINE 21 MG/24 HOURS TOPICAL PATCH TD SCH (10:04)
[2021-06-30] MEDS: PRENATAL VITAMINS W/ FOLIC ACID TABLET (FP) PO SCH (10:05)
[2021-06-30] MEDS ORDERED: ONDANSETRON *ODT* 4 MG TABLET SL ONE (11:26)
[2021-06-30] MEDS: THIAMINE HCL 100 MG TABLET (FP) PO SCH (22:05)
[2021-06-30] MEDS: MELATONIN 5 MG TABLETS PO SCH (22:05)
[2021-07-01] MEDS: IBUPROFEN 400 MG TABLET (FP) PO PRN (03:45)
[2021-07-01] MEDS: METHOCARBAMOL 500 MG TABLET PO PRN ×2 (05:11→17:47)
[2021-07-01] MEDS: NICOTINE 10 MG CARTRIDGE (INHALER) IH PRN ×4 (05:12→22:18)
[2021-07-01] MEDS: hydrOXYzine PAMOATE 25 MG CAPSULE (FP) PO SCH ×5 (06:15→22:18)
[2021-07-01] MEDS ORDERED: methaDONE HCL 10 MG TABLET (FOR DETOX USE ONLY) PO ONE (10:00)
[2021-07-01] MEDS: NICOTINE 21 MG/24 HOURS TOPICAL PATCH TD SCH (10:07)
[2021-07-01] MEDS: PRENATAL VITAMINS W/ FOLIC ACID TABLET (FP) PO SCH (10:07)
[2021-07-01] MEDS: THIAMINE HCL 100 MG TABLET (FP) PO SCH (22:18)
[2021-07-01] MEDS: MELATONIN 5 MG TABLETS PO SCH (22:18)
[2021-07-02] MEDS: hydrOXYzine PAMOATE 25 MG CAPSULE (FP) PO SCH (05:57)
[2021-07-02] MEDS: METHOCARBAMOL 500 MG TABLET PO PRN (05:57)
[2021-07-02 07:37] VITALS: BP 120/61; PULSE 70; TEMP 97.5
== END 2021-07-02 09:20 | disposition home or self-care (01) | DRG 773 ==
LOC: YASAS 09:54 → Y6N 10:47
PROVIDERS: ADMIT Allergy & Immunology; ATTEND Allergy & Immunology
PROC: HZ2ZZZZ Detoxification Services for Substance Abuse Treatment (ICD-10-PCS; principal; 2021-06-27)
DX: F11.23 Opioid dependence with withdrawal (principal); F14.20 Cocaine dependence, uncomplicated; F12.20 Cannabis dependence, uncomplicated; F17.210 Nicotine dependence, cigarettes, uncomplicated; R74.01 Elevation of levels of liver transaminase levels
CPT/HCPCS: 36415; 80053; 85027; 86780; 87811; C9803-CS; J0735; Q0162; U0003; U0005

== ENCOUNTER 2022-03-18 08:56 | Inpatient (IN) | payer OTHER ==
[2022-03-18] MEDS ORDERED: MAGNESIUM HYDROX 2400MG/30ML ORAL SUSPENSION 30 ML CUP PO PRN (10:37)
[2022-03-18] MEDS ORDERED: BENZOCAINE/MENTHOL (CHLORASEPTIC ) LOZENGE MM PRN (10:37)
[2022-03-18] MEDS ORDERED: BISMUTH SUBSALICYLATE 524 MG/30 ML PO PRN (10:37)
[2022-03-18] MEDS ORDERED: hydrOXYzine PAMOATE 25 MG CAPSULE (FP) PO PRN (10:37)
[2022-03-18] MEDS ORDERED: ONDANSETRON *ODT* 4 MG TABLET SL PRN (10:37)
[2022-03-18] MEDS ORDERED: MAG HYDROX/AL HYDROX/SIMETH 30 ML UNIT-DOSE CUP PO PRN (10:37)
[2022-03-18] MEDS ORDERED: NALOXONE HCL (KLOXXADO) 8 MG SPRAY NS PRN (10:37)
[2022-03-18] MEDS ORDERED: ACETAMINOPHEN 325 MG TABLET (FP) PO PRN ×2 (10:37)
[2022-03-18] MEDS ORDERED: IBUPROFEN 400 MG TABLET (FP) PO PRN (10:37)
[2022-03-18] MEDS ORDERED: POLYETHYLENE GLYCOL (HEALTHYLAX) 3350 17 GM PACKET PO PRN (10:37)
[2022-03-18] MEDS ORDERED: DICYCLOMINE HCL 10 MG CAPSULE PO PRN (10:37)
[2022-03-18] MEDS: IBUPROFEN 600 MG TABLET (FP) PO PRN (11:26)
[2022-03-18 11:29] VITALS: BMI 33.7
[2022-03-18] MEDS: NICOTINE 7 MG/24 HOURS TOPICAL PATCH TD SCH (11:31)
[2022-03-18] MEDS: METHOCARBAMOL 500 MG TABLET PO PRN ×2 (13:52→22:11)
[2022-03-18] MEDS: NICOTINE 10 MG CARTRIDGE (INHALER) IH PRN ×2 (17:39→22:11)
[2022-03-18] MEDS ORDERED: methaDONE HCL 10 MG TABLET (FOR DETOX USE ONLY) PO ONE (18:11)
[2022-03-18] MEDS ORDERED: cloNIDine HCL 0.1 MG TABLET PO PRN (18:11)
[2022-03-18] MEDS: THIAMINE HCL 100 MG TABLET (FP) PO SCH (22:11)
[2022-03-18] MEDS: MELATONIN 5 MG TABLETS PO SCH (22:11)
[2022-03-19] MEDS: NICOTINE 10 MG CARTRIDGE (INHALER) IH PRN ×3 (08:58→18:37)
[2022-03-19] MEDS: PRENATAL VITAMINS W/ FOLIC ACID TABLET (FP) PO SCH (10:06)
[2022-03-19] MEDS: NICOTINE 7 MG/24 HOURS TOPICAL PATCH TD SCH (10:06)
[2022-03-19] MEDS: METHOCARBAMOL 500 MG TABLET PO PRN ×2 (10:07→22:29)
[2022-03-19 10:34] LABS: HEMATOCRIT 36.7 % (35.4-49); HEMOGLOBIN 12.1 GM/dL (11.7-16.9); MCH 29.1 pg (25.7-33.7); MCHC 32.8 g/dl (32.0-35.9); MEAN CELL VOLUME 88.8 fl (80-96); MEAN PLT VOLUME 7.4 fl (7.5-11.1); PLATELET COUNT 270 10^3/uL (134-434); RBC 4.14 M/mm3 (4.00-5.60); RDW 12.9 % (11.9-15.9); WHITE BLOOD COUNT 4.2 K/mm3 (4.0-10.0)
[2022-03-19 10:41] LABS: CALCIUM 8.7 mg/dL (8.5-10.1)
[2022-03-19 10:42] LABS: ALBUMIN 3.3 g/dl (3.4-5.0); BLOOD UREA NITROGEN 13.3 mg/dL (7-18)
[2022-03-19 10:45] LABS: CREATININE 0.8 mg/dL (0.55-1.3)
[2022-03-19 10:46] LABS: BILIRUBIN,TOTAL 0.6 mg/dL (0.2-1)
[2022-03-19 10:47] LABS: TOT PROT 6.3 g/dl (6.4-8.2)
[2022-03-19] MEDS: IBUPROFEN 600 MG TABLET (FP) PO PRN (14:24)
[2022-03-19] MEDS: MELATONIN 5 MG TABLETS PO SCH (22:28)
[2022-03-19] MEDS: THIAMINE HCL 100 MG TABLET (FP) PO SCH (22:29)
[2022-03-20] MEDS ORDERED: methaDONE HCL 10 MG TABLET (FOR DETOX USE ONLY) PO ONE (10:00)
[2022-03-20] MEDS: METHOCARBAMOL 500 MG TABLET PO PRN ×2 (10:18→22:09)
[2022-03-20] MEDS: PRENATAL VITAMINS W/ FOLIC ACID TABLET (FP) PO SCH (10:18)
[2022-03-20] MEDS: NICOTINE 7 MG/24 HOURS TOPICAL PATCH TD SCH (10:19)
[2022-03-20] MEDS: NICOTINE 10 MG CARTRIDGE (INHALER) IH PRN ×3 (12:22→22:08)
[2022-03-20] MEDS: IBUPROFEN 600 MG TABLET (FP) PO PRN ×2 (14:40→22:08)
[2022-03-20] MEDS: MELATONIN 5 MG TABLETS PO SCH (22:09)
[2022-03-20] MEDS: THIAMINE HCL 100 MG TABLET (FP) PO SCH (22:09)
[2022-03-21] MEDS: METHOCARBAMOL 500 MG TABLET PO PRN ×2 (07:36→22:24)
[2022-03-21] MEDS: IBUPROFEN 600 MG TABLET (FP) PO PRN (07:36)
[2022-03-21] MEDS: PRENATAL VITAMINS W/ FOLIC ACID TABLET (FP) PO SCH (09:20)
[2022-03-21] MEDS: diazePAM 5 MG TABLET PO PRN ×3 (09:20→18:36)
[2022-03-21] MEDS: NICOTINE 10 MG CARTRIDGE (INHALER) IH PRN (09:21)
[2022-03-21] MEDS: NICOTINE 7 MG/24 HOURS TOPICAL PATCH TD SCH (09:23)
[2022-03-21] MEDS: THIAMINE HCL 100 MG TABLET (FP) PO SCH (22:24)
[2022-03-21] MEDS: MELATONIN 5 MG TABLETS PO SCH (22:24)
[2022-03-21] MEDS: hydrOXYzine PAMOATE 25 MG CAPSULE (FP) PO PRN (22:24)
[2022-03-22] MEDS: diazePAM 5 MG TABLET PO PRN ×4 (04:42→22:43)
[2022-03-22] MEDS: METHOCARBAMOL 500 MG TABLET PO PRN ×3 (04:42→22:43)
[2022-03-22 06:36] VITALS: RESP 18
[2022-03-22] MEDS: PRENATAL VITAMINS W/ FOLIC ACID TABLET (FP) PO SCH (09:22)
[2022-03-22] MEDS: NICOTINE 7 MG/24 HOURS TOPICAL PATCH TD SCH (09:22)
[2022-03-22] MEDS: NICOTINE 10 MG CARTRIDGE (INHALER) IH PRN (09:25)
[2022-03-22] MEDS ORDERED: methaDONE HCL 10 MG TABLET (FOR DETOX USE ONLY) PO ONE (10:00)
[2022-03-22] MEDS: hydrOXYzine PAMOATE 25 MG CAPSULE (FP) PO PRN (14:28)
[2022-03-22] MEDS: LOPERAMIDE HCL 2 MG CAPSULE PO PRN (17:51)
[2022-03-22] MEDS: MELATONIN 5 MG TABLETS PO SCH (22:43)
[2022-03-22] MEDS: THIAMINE HCL 100 MG TABLET (FP) PO SCH (22:43)
[2022-03-23 06:29] VITALS: BP 135/76; PULSE 66; TEMP 97.3
[2022-03-23] MEDS: LOPERAMIDE HCL 2 MG CAPSULE PO PRN (08:31)
== END 2022-03-23 09:15 | disposition home or self-care (01) | DRG 773 ==
LOC: YASAS 08:56 → Y6N 10:52
PROVIDERS: ADMIT Allergy & Immunology; ATTEND Surgery
PROC: HZ2ZZZZ Detoxification Services for Substance Abuse Treatment (ICD-10-PCS; principal; 2022-03-18)
DX: F11.23 Opioid dependence with withdrawal (principal); F14.20 Cocaine dependence, uncomplicated; F12.20 Cannabis dependence, uncomplicated; F17.210 Nicotine dependence, cigarettes, uncomplicated; U07.1 COVID-19
CPT/HCPCS: 36415; 80053; 85027; 86780; 87811; C9803-CS; U0003; U0005

== ENCOUNTER 2023-02-03 10:10 | Inpatient (IN) | payer OTHER ==
[2023-02-03 13:30] VITALS: BMI 34.6
[2023-02-03] MEDS ORDERED: DICYCLOMINE HCL 10 MG CAPSULE PO PRN (13:40)
[2023-02-03] MEDS ORDERED: BISMUTH SUBSALICYLATE 524 MG/30 ML PO PRN (13:40)
[2023-02-03] MEDS ORDERED: LOPERAMIDE HCL 2 MG CAPSULE PO PRN (13:40)
[2023-02-03] MEDS ORDERED: NALOXONE HCL 0.4 MG/ML VIAL IM PRN (13:40)
[2023-02-03] MEDS ORDERED: BENZOCAINE/MENTHOL (CHLORASEPTIC ) LOZENGE MM PRN (13:40)
[2023-02-03] MEDS ORDERED: ACETAMINOPHEN 325 MG TABLET (FP) PO PRN (13:40)
[2023-02-03] MEDS ORDERED: NALOXONE HCL (KLOXXADO) 8 MG SPRAY NS PRN (13:40)
[2023-02-03] MEDS ORDERED: NICOTINE POLACRILEX 2 MG GUM BUC PRN (13:40)
[2023-02-03] MEDS ORDERED: IBUPROFEN 400 MG TABLET (FP) PO PRN (13:40)
[2023-02-03] MEDS ORDERED: ONDANSETRON *ODT* 4 MG TABLET SL PRN (13:40)
[2023-02-03] MEDS ORDERED: POLYETHYLENE GLYCOL (HEALTHYLAX) 3350 17 GM PACKET PO PRN (13:40)
[2023-02-03] MEDS ORDERED: MAG HYDROX/AL HYDROX/SIMETH 30 ML UNIT-DOSE CUP PO PRN (13:40)
[2023-02-03] MEDS ORDERED: MAGNESIUM HYDROX 2400MG/30ML ORAL SUSPENSION 30 ML CUP PO PRN (13:40)
[2023-02-03] MEDS ORDERED: BENZONATATE 200 MG CAPSULE PO PRN (13:40)
[2023-02-03] MEDS ORDERED: guaiFENesin 600 MG TABLET.ER (FP) PO PRN (13:40)
[2023-02-03] MEDS: NICOTINE 21 MG/24 HOURS TOPICAL PATCH TD SCH (15:06)
[2023-02-03] MEDS ORDERED: NICOTINE 21 MG/24 HOURS TOPICAL PATCH ONE (15:14)
[2023-02-03] MEDS ORDERED: cloNIDine HCL 0.1 MG TABLET PO PRN (17:19)
[2023-02-03] MEDS ORDERED: methaDONE HCL 10 MG TABLET (FOR DETOX USE ONLY) PO ONE (17:19)
[2023-02-03] MEDS: METHOCARBAMOL 500 MG TABLET PO PRN (17:42)
[2023-02-03] MEDS: THIAMINE HCL 100 MG TABLET (FP) PO SCH (22:12)
[2023-02-03] MEDS: hydrOXYzine PAMOATE 25 MG CAPSULE (FP) PO PRN (22:12)
[2023-02-03] MEDS: IBUPROFEN 600 MG TABLET (FP) PO PRN (22:12)
[2023-02-03] MEDS: MELATONIN 5 MG TABLETS PO SCH (22:12)
[2023-02-04] MEDS: NICOTINE 21 MG/24 HOURS TOPICAL PATCH TD SCH (10:12)
[2023-02-04] MEDS: PRENATAL VITAMINS W/ FOLIC ACID TABLET (FP) PO SCH (10:12)
[2023-02-04] MEDS: METHOCARBAMOL 500 MG TABLET PO PRN ×2 (10:15→22:10)
[2023-02-04 10:26] LABS: HEMATOCRIT 35.6 % (35.4-49); HEMOGLOBIN 11.9 GM/dL (11.7-16.9); MCH 29.8 pg (25.7-33.7); MCHC 33.4 g/dl (32.0-35.9); MEAN CELL VOLUME 89.3 fl (80-96); MEAN PLT VOLUME 7.2 fl (7.5-11.1); PLATELET COUNT 236 10^3/uL (134-434); RBC 3.99 M/mm3 (4.00-5.60); RDW 12.7 % (11.9-15.9); WHITE BLOOD COUNT 3.9 K/mm3 (4.0-10.0)
[2023-02-04] MEDS: MELATONIN 5 MG TABLETS PO SCH (22:09)
[2023-02-04] MEDS: diazePAM 5 MG TABLET PO PRN (22:10)
[2023-02-04] MEDS: THIAMINE HCL 100 MG TABLET (FP) PO SCH (22:10)
[2023-02-04] MEDS: hydrOXYzine PAMOATE 25 MG CAPSULE (FP) PO PRN (22:11)
[2023-02-05] MEDS ORDERED: methaDONE HCL 10 MG TABLET (FOR DETOX USE ONLY) PO ONE (10:00)
[2023-02-05] MEDS: NICOTINE 21 MG/24 HOURS TOPICAL PATCH TD SCH (10:03)
[2023-02-05] MEDS: hydrOXYzine PAMOATE 25 MG CAPSULE (FP) PO PRN ×2 (10:04→22:10)
[2023-02-05] MEDS: METHOCARBAMOL 500 MG TABLET PO PRN (10:04)
[2023-02-05] MEDS: PRENATAL VITAMINS W/ FOLIC ACID TABLET (FP) PO SCH (10:06)
[2023-02-05] MEDS: IBUPROFEN 600 MG TABLET (FP) PO PRN (16:46)
[2023-02-05] MEDS: THIAMINE HCL 100 MG TABLET (FP) PO SCH (22:09)
[2023-02-05] MEDS: MELATONIN 5 MG TABLETS PO SCH (22:09)
[2023-02-05] MEDS: diazePAM 5 MG TABLET PO PRN (22:10)
[2023-02-06] MEDS: METHOCARBAMOL 500 MG TABLET PO PRN ×2 (10:15→22:10)
[2023-02-06] MEDS: PRENATAL VITAMINS W/ FOLIC ACID TABLET (FP) PO SCH (10:15)
[2023-02-06] MEDS: diazePAM 5 MG TABLET PO PRN ×2 (10:15→14:36)
[2023-02-06] MEDS: hydrOXYzine PAMOATE 25 MG CAPSULE (FP) PO PRN ×2 (10:15→22:10)
[2023-02-06] MEDS: IBUPROFEN 600 MG TABLET (FP) PO PRN (10:16)
[2023-02-06] MEDS: NICOTINE 21 MG/24 HOURS TOPICAL PATCH TD SCH (10:16)
[2023-02-06] MEDS: THIAMINE HCL 100 MG TABLET (FP) PO SCH (22:10)
[2023-02-06] MEDS: MELATONIN 5 MG TABLETS PO SCH (22:10)
[2023-02-07] MEDS: hydrOXYzine PAMOATE 25 MG CAPSULE (FP) PO PRN ×2 (09:59→22:28)
[2023-02-07] MEDS: METHOCARBAMOL 500 MG TABLET PO PRN (09:59)
[2023-02-07] MEDS ORDERED: methaDONE HCL 10 MG TABLET (FOR DETOX USE ONLY) PO ONE (10:00)
[2023-02-07] MEDS: PRENATAL VITAMINS W/ FOLIC ACID TABLET (FP) PO SCH (10:01)
[2023-02-07] MEDS: NICOTINE 21 MG/24 HOURS TOPICAL PATCH TD SCH (10:02)
[2023-02-07] MEDS ORDERED: PANTOPRAZOLE 40 MG TABLET PO SCH (11:45)
[2023-02-07] MEDS: IBUPROFEN 600 MG TABLET (FP) PO PRN (12:27)
[2023-02-07 21:00] VITALS: RESP 17; TEMP 97.8
[2023-02-07] MEDS: THIAMINE HCL 100 MG TABLET (FP) PO SCH (22:27)
[2023-02-07] MEDS: MELATONIN 5 MG TABLETS PO SCH (22:27)
[2023-02-08] MEDS: hydrOXYzine PAMOATE 25 MG CAPSULE (FP) PO PRN (02:09)
[2023-02-08] MEDS: METHOCARBAMOL 500 MG TABLET PO PRN (02:09)
[2023-02-08] MEDS: IBUPROFEN 600 MG TABLET (FP) PO PRN (02:09)
[2023-02-08 06:13] VITALS: BP 137/81; PULSE 74
== END 2023-02-08 08:26 | disposition home or self-care (01) | DRG 773 ==
LOC: YASAS 10:10 → Y6N 13:56
PROVIDERS: ADMIT Allergy & Immunology; ATTEND Surgery
PROC: HZ2ZZZZ Detoxification Services for Substance Abuse Treatment (ICD-10-PCS; principal; 2023-02-03)
DX: F11.23 Opioid dependence with withdrawal (principal); F10.10 Alcohol abuse, uncomplicated; F17.213 Nicotine dependence, cigarettes, with withdrawal; R10.13 Epigastric pain
CPT/HCPCS: 36415; 85027; 86780; 87635

== ENCOUNTER 2023-07-28 08:29 | Inpatient (IN) | payer OTHER ==
[2023-07-28 09:16] VITALS: BMI 37.9
[2023-07-28] MEDS ORDERED: NALOXONE HCL 0.4 MG/ML VIAL IM PRN (10:04)
[2023-07-28] MEDS ORDERED: POLYETHYLENE GLYCOL (HEALTHYLAX) 3350 17 GM PACKET PO PRN (10:04)
[2023-07-28] MEDS ORDERED: cloNIDine HCL 0.1 MG TABLET PO PRN (10:04)
[2023-07-28] MEDS ORDERED: NALOXONE HCL (KLOXXADO) 8 MG SPRAY NS PRN (10:04)
[2023-07-28] MEDS ORDERED: BENZOCAINE/MENTHOL (CHLORASEPTIC ) LOZENGE MM PRN (10:04)
[2023-07-28] MEDS ORDERED: ONDANSETRON *ODT* 4 MG TABLET SL PRN (10:04)
[2023-07-28] MEDS ORDERED: ACETAMINOPHEN 325 MG TABLET (FP) PO PRN (10:04)
[2023-07-28] MEDS ORDERED: BENZONATATE 200 MG CAPSULE PO PRN (10:04)
[2023-07-28] MEDS ORDERED: MAGNESIUM HYDROX 2400MG/30ML ORAL SUSPENSION 30 ML CUP PO PRN (10:04)
[2023-07-28] MEDS ORDERED: guaiFENesin 600 MG TABLET.ER (FP) PO PRN (10:04)
[2023-07-28] MEDS ORDERED: BISMUTH SUBSALICYLATE 524 MG/30 ML PO PRN (10:04)
[2023-07-28] MEDS ORDERED: MAG HYDROX/AL HYDROX/SIMETH 30 ML UNIT-DOSE CUP PO PRN (10:04)
[2023-07-28] MEDS ORDERED: DICYCLOMINE HCL 10 MG CAPSULE PO PRN (10:04)
[2023-07-28] MEDS ORDERED: methaDONE HCL 10 MG TABLET (FOR DETOX USE ONLY) ONE (10:48)
[2023-07-28] MEDS: methaDONE HCL 10 MG TABLET (FOR DETOX USE ONLY) PO ONE (10:51)
[2023-07-28] MEDS ORDERED: NICOTINE 21 MG/24 HOURS TOPICAL PATCH ONE (11:02)
[2023-07-28] MEDS: NICOTINE 21 MG/24 HOURS TOPICAL PATCH TD SCH (11:04)
[2023-07-28] MEDS: IBUPROFEN 600 MG TABLET (FP) PO PRN (17:55)
[2023-07-28] MEDS: NICOTINE POLACRILEX 4 MG GUM BUC PRN (17:56)
[2023-07-28] MEDS: THIAMINE 100 MG TABLET PO SCH (22:03)
[2023-07-28] MEDS: MELATONIN 5 MG TABLETS PO SCH (22:04)
[2023-07-29] MEDS: PRENATAL VITAMINS W/ FOLIC ACID TABLET (FP) PO SCH (10:09)
[2023-07-29 10:58] LABS: HEMOGLOBIN 14.6 GM/dL (11.7-16.9); MCH 30.6 pg (25.7-33.7); MCHC 34.7 g/dl (32.0-35.9); MEAN CELL VOLUME 88.2 fl (80-96); MEAN PLT VOLUME 7.7 fl (7.5-11.1); PLATELET COUNT 242 10^3/uL (134-434); RBC 4.76 M/mm3 (4.00-5.60); RDW 13.3 % (11.9-15.9); WHITE BLOOD COUNT 4.6 K/mm3 (4.0-10.0)
[2023-07-29 11:21] LABS: CALCIUM 9.3 mg/dL (8.5-10.1)
[2023-07-29 11:22] LABS: ALBUMIN 4.1 g/dl (3.4-5.0); BLOOD UREA NITROGEN 14.2 mg/dL (7-18); CREATININE 0.8 mg/dL (0.55-1.3)
[2023-07-29 11:24] LABS: BILIRUBIN,TOTAL 0.4 mg/dL (0.2-1); TOT PROT 7.6 g/dl (6.4-8.2)
[2023-07-29] MEDS: METHOCARBAMOL 500 MG TABLET PO PRN (22:04)
[2023-07-29] MEDS: hydrOXYzine PAMOATE 25 MG CAPSULE (FP) PO PRN (22:04)
[2023-07-30] MEDS: methaDONE HCL 10 MG TABLET (FOR DETOX USE ONLY) PO ONE (10:17)
[2023-07-30] MEDS: clonazePAM 0.5 MG ODT TABLETS SL PRN (22:11)
[2023-08-01] MEDS: methaDONE HCL 10 MG TABLET (FOR DETOX USE ONLY) PO ONE (10:10)
[2023-08-01] MEDS: LOPERAMIDE HCL 2 MG CAPSULE PO PRN (10:11)
[2023-08-01] MEDS: diazePAM 5 MG TABLET PO ONE (13:30)
[2023-08-01] MEDS: DIPHENOXYLATE 2.5/ATROPINE.025 1 COMBO TABLET PO ONE (13:30)
[2023-08-02] MEDS: IBUPROFEN 400 MG TABLET (FP) PO PRN (05:48)
[2023-08-02 09:47] VITALS: BP 137/89; PULSE 107; RESP 20; TEMP 97.7
== END 2023-08-02 09:20 | disposition home or self-care (01) | DRG 773 ==
LOC: YASAS 08:29 → Y6N 10:24
PROVIDERS: ADMIT Allergy & Immunology; ATTEND Surgery
PROC: HZ2ZZZZ Detoxification Services for Substance Abuse Treatment (ICD-10-PCS; principal; 2023-07-28)
DX: F11.23 Opioid dependence with withdrawal (principal); F12.20 Cannabis dependence, uncomplicated; F17.293 Nicotine dependence, other tobacco product, with withdrawal
CPT/HCPCS: 36415; 80053; 80305; 80307; 85027; 86480; 86780; 93005; 93010